=== PATIENT | female | born 1960 | race Caucasian/White ===

== ENCOUNTER → 2018-10-09 | Outpatient (CLI) | payer BC | END | disposition home or self-care (01) | LOC: LABWHC1 12:48 | PROVIDERS: ATTEND Otolaryngology | DX: J30.89 Other allergic rhinitis (principal) | CPT/HCPCS: 36415 ==

== ENCOUNTER 2023-10-30 19:45 | Outpatient (CLI) | payer BC ==
--- NOTE | 2023-10-31 21:31 | P.PCN ---
Date of Procedure: 10/30/23 Operative Findings: Screening polysomnography report Date of service is 10/30/2023 Pertinent history this is a 63-year-old female patient who presented to my office due to concerns of obstructive sleep apnea. The patient reported symptoms of snoring, hypersomnia and sleep fragmentation with an Rochester score of 8. She has a Mallampati class IV with crowding of the posterior pharynx with an overbite. No significant weight gain over the years. No significant cardiovascular complications. No other comorbidities other than history of breast cancer. Based on that, the sleep study was offered Pertinent physical findings The height is 5 feet and 7 inches, weight 165 with a BMI of 25.8 Technical description The patient was studied using a standard complex polysomnography protocol that included recording of the 2 EKG, Central, occipital and frontal EEG, right and left outer canthus EOG, submental EMG, right and left anterior tibialis EMG, respiratory airflow by thermocouple and or pressure/flow transducer, respiratory efforts by abdominal and thoracic PVDF belts, oxygen saturation by cable oximetry. Position by observation synchronized the PSG. Equipment used: Kickboard. Sleep architecture The total time in bed was 306.5 minutes. The total sleep time was 360.5 minutes. Sleep efficiency was 92.9%. The latency to sleep onset is 11 minutes. Relates to REM sleep was 1225.5 minutes. The sleep architecture was catheterized by 5.6% stage I, 80.9% stage II, 0.5% stage III, and 13% REM sleep. The wake after sleep onset time was 50 minutes. The total arousal index was 5.7. Sleep continuity summary The patient had a total of 35 arousals with an arousal index of 5.7. Res piratory arousal index was 1.6 Periodic movement events The patient had a total of 278 periodic limb movement activity with a index of 45.3. Note that none of this periodic moment activities resulted in 2 arousals Cardiac summary The average heart rate is 54, minimum heart rate was 51 and the maximum heart rate is 59 Respiratory summary The patient respiratory analysis demonstrated a total of 93 obstructive events of which 3 were obstructive apneas, 2 mixed apneas and 88 were obstructive hypopneas. Based on the AASM rule 1B criteria, the patient has an AHI of 15.3. The patient also had 1 central event with a central apnea index of 0.2. Noted the patient's sleep apnea was worse during REM sleep with a AHI during REM being at 22.5. Oxygenation analysis The baseline pulse ox was 92% while awake. The minimum pulse ox was during non- REM sleep at 77%, minimum pulse ox during REM sleep was 82% and the patient spent approximately 1 hour and 1 minutes of sleep time below pulse ox of 89%. Assessment Mild to moderate obstructive sleep apnea with an AHI of 15.3 Oxygen saturation. Noted the patient's pulse ox while awake was also low and she did encounter some oxygen saturation during sleep as the patient spent approximately 1 hour of sleep time below pulse ox of 89%. Chronic hypersomnia with an Rochester score of 8 History of breast cancer Osteopenia Osteoarthritis Mitral valve prolapse Plan This is a case of mild obstructive sleep apnea. The patient reported sleep fragmentation. Nevertheless, the arousal index as measured in this sleep study was low at 5.7. Note that she also did encounter excessive. Regular movement activity yet this did not contribute to any sleep fragmentation or nocturnal arousals. The patient will be than the option of CPAP therapy. If she is willing to undertake the treatment, she is going to be offered an APAP machine at a pressure of 5/15 cm of water and subsequently, her clinical response will be assessed and evaluated. I would suggest the patient see me in the office in 30 to 90 days should she decide to proceed with CPAP therapy.
== END 2023-10-31 13:15 | disposition home or self-care (01) ==
LOC: 3 N SLEEP 19:45
PROVIDERS: ATTEND Internal Medicine Critical Care Medicine
DX: G47.33 Obstructive sleep apnea (adult) (pediatric) (principal); G47.10 Hypersomnia, unspecified; M85.88 Other specified disorders of bone density and structure, other site; M19.90 Unspecified osteoarthritis, unspecified site; I34.1 Nonrheumatic mitral (valve) prolapse; Z85.3 Personal history of malignant neoplasm of breast
CPT/HCPCS: 95810